=== PATIENT | male | born 1945 | race Caucasian/White ===

== ENCOUNTER → 2018-10-20 | Outpatient (CLI) | payer MEDICARE ==
[~2018-10-20] MED LIST: AEC81 PO; CHOL20004 PO; LEVO75TA10 PO; LISI40TA4 PO; MULT-40 PO; NIFE20CA PO; TAMS0.4C32 PO
== END | disposition home or self-care (01) ==
LOC: RAH 14:29
PROVIDERS: ATTEND Family Medicine
DX: N13.30 Unspecified hydronephrosis (principal); N20.0 Calculus of kidney; N28.1 Cyst of kidney, acquired; K57.90 Diverticulosis of intestine, part unspecified, without perforation or abscess without bleeding; N26.1 Atrophy of kidney (terminal); N32.89 Other specified disorders of bladder; I70.90 Unspecified atherosclerosis; K76.0 Fatty (change of) liver, not elsewhere classified; M47.815 Spondylosis without myelopathy or radiculopathy, thoracolumbar region
CPT/HCPCS: 74176

== ENCOUNTER → 2018-12-08 | Outpatient (CLI) | payer MEDICARE | END | disposition home or self-care (01) | LOC: RAH 14:19 | PROVIDERS: ATTEND Urology | DX: N28.1 Cyst of kidney, acquired (principal); N27.0 Small kidney, unilateral | CPT/HCPCS: 76770 ==

== ENCOUNTER → 2024-11-29 | Outpatient (CLI) | payer MEDICARE ==
[~2024-11-29] MED LIST changes: +LISI40TA15 PO; -LISI40TA4 PO; -NIFE20CA PO; +NIFE20CA9 PO
--- NOTE | 2024-11-29 13:30 | NUR ---
MBSS COMPLETED (OUTPATIENT). Recommend regular solids (moist), thin liquids, and pills crushed with pureed or whole 1 per swallow as tolerated. Compensatory strategies: 1. sit upright during oral intake DIAGNOSTIC FINDINGS: Oropharyngeal swallowing is within functional limits. No penetrations or aspiration observed. Pt with mild pharyngeal residue cleared with re-swallows. Otherwise, exam was negative for etiology of patients c/o globus sensation/choking with oral intake. Coughs and throat clears throughout exam not indicating aspirations/penetrations. HEAD START COORDINATOR reviewed results and recommendations with patient. HEAD START COORDINATOR educated patient on risks and consequences of aspiration. Speech therapy not warranted at this time. All questions answered. Addendum: 11/29/[address] [facility] Amended: Links added.
--- NOTE | 2024-12-15 14:57 | HMCIMG ---
MODIFIED BARIUM SWALLOW W CINE REASON: DYSPHAGIA, UNSPECIFIED FINDINGS: Fluoroscopic assistance was provided to the speech pathologist while performing examination. For findings and dietary recommendations, refer to speech pathologist's report. FLUORO TIME: 2.6 minutes IMPRESSION: Modified barium swallow as described.
== END | disposition home or self-care (01) ==
LOC: RAH 12:09
PROVIDERS: ATTEND Otolaryngology
DX: R13.10 Dysphagia, unspecified (principal)
CPT/HCPCS: 74230; 92611